=== PATIENT | male | born 1985 | race Caucasian/White ===

== ENCOUNTER 2022-04-21 17:28 | Emergency (ER) | payer OTHER, SELFPAY ==
[2022-04-21] VITALS (28 sets, daily range): BP systolic 114–145; BP diastolic 73–97; PULSE 62–81; RESP 8; TEMP 36.1; O2SAT 97–100; BMI 26.6
--- NOTE | 2022-04-21 17:50 | CRLHL7_ITS ---
For Patients: As a result of the Century Cures Act, medical imaging exams and procedure reports are released immediately into your electronic medical record. You may view this report before your referring provider. If you have questions, please contact your health care provider. INDICATION: Fall. Head injury. Loss of consciousness. TECHNIQUE: CT of the head without contrast. Coronal and sagittal reformats are included. COMPARISON: None. FINDINGS: Motion artifact degrades fine detail. No acute intracranial hemorrhage. No mass effect or midline shift. No hydrocephalus or extra-axial collections. Pineal gland cyst. Asymmetry of the ventricular system likely anatomic variance. No acute osseous abnormalities. Left maxillary sinus air-fluid level. Paranasal sinuses otherwise clear. Mastoid air cells are clear. Normal soft tissues. IMPRESSION: 1. Motion artifact degrades fine detail. Accounting for this, no acute intracranial abnormalities identified. Please note that all CT scans at this facility use dose modulation, iterative reconstruction, and/or weight-based dosing when appropriate to reduce radiation dose to as low as reasonably achievable. Dictated by Asa Blackburn MD @ 04/21/2022 6:28:37 PM (Electronically Signed)
--- NOTE | 2022-04-21 17:55 | ED.NURSE ---
LET and tegaderm applied to R eye lac.
--- NOTE | 2022-04-21 17:56 | CRLHL7_ITS ---
For Patients: As a result of the Cures Act, medical imaging exams and procedure reports are released immediately into your electronic medical record. You may view this report before your referring provider. If you have questions, please contact your health care provider. INDICATION: Injury and pain. TECHNIQUE: Right thumb 3 views. COMPARISON: None. FINDINGS: Small avulsion fracture of the distal phalangeal base. Joint spaces are maintained. Mild soft tissue swelling. IMPRESSION: Distal phalangeal base avulsion fracture. Dictated by Russel Combs MD @ 04/21/2022 6:26:53 PM (Electronically Signed)
--- NOTE | 2022-04-21 18:03 | ED_ITS ---
HPI - Fall General Date Seen: 04/21/22 Chief Complaint: Fall/Minor Trauma Stated Complaint: LAC EYE,GUMS-PASSED OUT-POSSIBLE BROKEN THUMB Time Seen by Provider: 04/21/22 17:29 Source: patient and family Mode of arrival: ambulatory Limitations: no limitations History of Present Illness HPI Narrative: Patient is delightful 28-year-old gentleman accompanied by his who was at a local brewery in [place], when he walked to the bathroom felt faint and passed out striking right side of his head, on porcelain toilet. He tried to get up he thinks, and then repeat passed out. Is found by family member there and the bathroom, they sat him on the toilet knee was very groggy, sweaty. Denies any real recollection of what went on, there is no history of any seizure activity, and he has had no previous history of any syncopal episodes. It a total of 2 beers today, but did not drink a lot of fluids nor eat any real food. No pre- existing history of cardiac issues, denies any chest pain shortness of breath associated with this. Denies any use of any other drugs. Did suffer a laceration to the right corner of his eye, slight headache associated with this but denies any neck pain, there is no numbness tingling weakness in his hands or his feet, he is not nauseous, does have some pain to his right thumb. Feels much better now and feels like he is back to basically normal except with the above complaints. Not taking any medications for his discomfort. MD complaint: fall Onset (ago): minute(s) (45) Fall from: standing Fall witnessed: no Place fall occurred: other Loss of consciousness: Yes Prolonged down time: no and unclear Symptoms prior to fall: lightheadedness Context: alcohol use Location of injury: head, face and other Severity: moderate Quality: throbbing Associated symptoms (after fall): headache Related Data Home Medications Medication Instructions Recorded Confirmed No Known Home Medications 04/21/22 04/21/22 Allergies Allergy/AdvReac Type Severity Reaction Status Date / Time No Known Drug Allergies Allergy Verified 03/03/22 09:24 Review of Systems Status of ROS: Reports: 10 or more systems reviewed and unremarkable except as noted in History and below [facility] Social History Smoking Status: Current some day smoker What tobacco products do you use: cigarettes Do you use any of these nicotine containing products: None How often do you have a drink containing alcohol: monthly or less How many standard drinks containing alcohol do you have on a typical day: 1 or 2 How often do you have six or more drinks on one occasion: Never AUDIT-C Alcohol total score: 1 Non-prescribed substance use: denies use Exam Narrative: Exam Narrative: Patient is in no apparent distress speaking to me normally on the cart, laceration of approximately 1 and half to 2 in noted lateral to his right eye, and horizontal. Some gaping. Alert and oriented x3, speaking normally now eloquently, neck has good range of motion of flexion extension lateral flexion cervical rotation there is no C-spine tenderness, little bit of tenderness over the right zygomatic arch, cranial nerves 3-12 are normal, extraocular muscles are normal, no scleral icterus redness is noted his TMs are normal, moves mouth opening normal, laceration to the right upper gum, over his 1st incisor, note loosening of his teeth are noted, there is no other or oropharyngeal laceration noted. Submandibular area is quiet, with no swelling, JVP is flat, no lymphadenopathy anterior posterior chains, clavicles are nontender, chest is good air entry bilateral with no wheezing crackles noted, easy respirations, h eart sounds no clicks murmurs or gallops, he moves all extremities independently and well, both upper Annabella is a little tender over the IP joint of his right thumb. His wrists are nontender bilaterally good director of digital technology strength good proximal muscle and distal muscle strength of both upper and lower bilateral extremities. Abdomen is soft there is no guarding no past splenomegaly bowel sounds are normal, C-spine thoracic spine and lumbar spine are nontender to palpation, fine motor movements fingers nose testing are normal. Const: Vital Signs, click to edit/add: Vital Signs - 24 hr 04/21/22 17:35 04/21/22 17:40 04/21/22 17:43 Temperature 97.0 F L Pulse Rate 65 Pulse Rate [Left P ulse Oximeter] 62 64 Respiratory Rate 8 L Blood Pressure 134/87 Blood Pressure [Ri ght Upper Arm] 137/97 H 134/87 Pulse Oximetry 100 100 100 Oxygen Delivery Me thod Room Air Room Air 04/21/22 17:44 04/21/22 17:50 04/21/22 18:00 Temperature Pulse Rate 68 66 66 Pulse Rate [Left P ulse Oximeter] Respiratory Rate Blood Pressure Blood Pressure [Ri ght Upper Arm] Pulse Oximetry 99 99 99 Oxygen Delivery Me thod 04/21/22 18:02 04/21/22 18:10 04/21/22 18:12 Temperature Pulse Rate 68 71 69 Pulse Rate [Left P ulse Oximeter] Respiratory Rate Blood Pressure 143/86 H 135/88 Blood Pressure [Ri ght Upper Arm] Pulse Oximetry 99 99 99 Oxygen Delivery Me thod 04/21/22 18:24 04/21/22 18:25 04/21/22 18:26 Temperature Pulse Rate 71 69 72 Pulse Rate [Left P ulse Oximeter] Respiratory Rate Blood Pressure 114/85 Blood Pressure [Ri ght Upper Arm] Pulse Oximetry 100 99 99 Oxygen Delivery Me thod 04/21/22 18:30 04/21/22 18:32 04/21/22 18:33 Temperature Pulse Rate 70 71 69 Pulse Rate [Left P ulse Oximeter] Respiratory Rate Blood Pressure 120/77 Blood Pressure [Ri ght Upper Arm] Pulse Oximetry 99 98 98 Oxygen Delivery Me thod 04/21/22 18:40 04/21/22 18:41 04/21/22 18:50 Temperature Pulse Rate 69 71 69 Pulse Rate [Left P ulse Oximeter] Respiratory Rate Blood Pressure 119/77 Blood Pressure [Ri ght Upper Arm] Pulse Oximetry 98 98 99 Oxygen Delivery Me thod 04/21/22 18:52 04/21/22 19:00 04/21/22 19:02 Temperature Pulse Rate 77 76 77 Pulse Rate [Left P ulse Oximeter] Respiratory Rate Blood Pressure 142/87 H 120/78 Blood Pressure [Ri ght Upper Arm] Pulse Oximetry 99 100 99 Oxygen Delivery Me thod 04/21/22 19:12 04/21/22 19:13 04/21/22 19:20 Temperature Pulse Rate 81 76 78 Pulse Rate [Left P ulse Oximeter] Respiratory Rate Blood Pressure 145/77 H Blood Pressure [Ri ght Upper Arm] Pulse Oximetry 98 98 98 Oxygen Delivery Me thod 04/21/22 19:22 04/21/22 19:23 04/21/22 19:30 Temperature Pulse Rate 76 81 75 Pulse Rate [Left P ulse Oximeter] Respiratory Rate Blood Pressure 130/73 Blood Pressure [Ri ght Upper Arm] Pulse Oximetry 97 97 98 Oxygen Delivery Me thod 04/21/22 19:31 Temperature Pulse Rate 74 Pulse Rate [Left P ulse Oximeter] Respiratory Rate Blood Pressure 129/74 Blood Pressure [Ri ght Upper Arm] Pulse Oximetry 98 Oxygen Delivery Me thod Documenting provider has reviewed patient's vital signs: yes Common normals: no apparent distress and average body habitus Course Vital Signs Vital signs: Initial Vital Signs Temperature 97.0 F L 04/21/22 17:35 Temperature Source Temporal Artery Scan 04/21/22 17:35 Pulse Rate 62 04/21/22 17:35 Blood Pressure 137/97 H 04/21/22 17:35 Blood Pressure Mean 110 04/21/22 17:35 Blood Pressure Position Supine 04/21/22 17:35 Pulse Oximetry 100 04/21/22 17:35 Oxygen Delivery Method 04/21/22 17:35 Vital Signs Temperature 97.0 F L 04/21/22 17:35 Pulse Rate 62 04/21/22 17:35 Blood Pressure 137/97 H 04/21/22 17:35 Pulse Oximetry 100 04/21/22 17:35 Oxygen Delivery Method 04/21/22 17:35 Temperature 97.0 F L 04/21/22 17:35 Pulse Rate 74 04/21/22 19:31 Respiratory Rate 8 L 04/21/22 17:40 Blood Pressure 129/74 04/21/22 19:31 Pulse Oximetry 98 04/21/22 19:31 Oxygen Delivery Method 04/21/22 17:40 MDM - Fall MDM Narrative Medical decision making narrative: Life-threatening differential diagnosis considered include: Cardiac arrhythmia, acute blood loss, and intracranial bleed. Other differential diagnosis include but are not limited to vasovagal syncope, orthostatic syncope, seizure, as well as other etiologies Life-threatening differential diagnosis is considered include: Subarachnoid hemorrhage, subdural hemorrhage, epidural hemorrhage. Other differential diagnosis considered include concussion, closed head injury, or neck fracture. Lab Data Labs: Lab Results 04/21/22 04/21/22 04/21/22 Range/Units 17:54 18:00 18:00 WBC 8.82 (4.50-11.00) K/uL RBC 5.53 (4.30-5.90) m/uL Hgb 16.2 (13.5-17.5) gm/dL Hct 48.7 (37.0-53.0) % MCV 88 (80-100) fL MCH 29 (26-34) pg MCHC 33 (32-36) gm/dL RDW Coeff of Martin 12.9 (11.5-15.5) % Plt Count 222 (140-440) K/uL Neut % (Auto) 55.3 (42.0-72.0) % Lymph % (Auto) 33.4 (20-44) % Foard % (Auto) 7.3 (0.0-11.0) % Eos % (Auto) 3.1 (0.0-7.0) % Baso % (Auto) 0.7 (0.0-3.0) % Neut # (Auto) 4.88 (1.7-7.0) K/uL Lymph # (Auto) 2.95 H (0.90-2.90) K/uL Foard # (Auto) 0.60 (0.00-0.90) K/UL Eos # (Auto) 0.27 (0.00-0.50) K/uL Baso # (Auto) 0.06 (0.00-0.30) K/uL Abs Immat Gran (auto) 0.02 (0.00-0.30) K/uL Sodium 139 (135-149) mmol/L Potassium 3.5 L (3.6-5.1) mmol/L Chloride 101 (96-114) mmol/L Carbon Dioxide 26 (20-32) mmol/L BUN 17 (5-24) mg/dL Creatinine 1.4 (0.5-1.5) mg/dL Estimated Creat Clear 71.54 Estimated GFR 66 ml/min Glucose 105 (60-115) mg/dL Calcium 9.2 (8.4-10.6) mg/dL POC Troponin I 0.00 L (0.01-0.04) ng/ml ECG Data Attestation: I personally reviewed and interpreted this ECG as follows: ECG interpretation date: 04/21/22 ECG interpretation time: 17:36 Prior ECG tracings: not available for review Interpretation: EKG shows normal sinus rhythm with a ventricular rate of 61, no acute ST wave changes noted. NC interval and QT your normal Discharge Plan Discharge Clinical Impression: Laceration Syncope Qualifiers: Syncope type: unspecified Qualified Code(s): R55 - Syncope and collapse Avulsion fracture of thumb Qualifiers: Encounter type: initial encounter Laterality: right Head injury Qualifiers: Encounter type: initial encounter Qualified Code(s): S09.90XA - Unspecified inj ury of head, initial encounter Patient Disposition: Home w/ Parent or Adult Condition: Improved Instructions: Care For Your Stitches (DC), Syncope (ED), Head Injury (ED), Thumb Fracture (ED), Facial Laceration (ED) Additional Instructions: Home, rest, follow-up in 5 days for removal of sutures with primary care, bacitracin daily to the area. Please keep the splint on her thumb, and follow- up with orthopedics for this or Primary Care. Would suggest Tylenol ibuprofen, for the discomfort keep hydrated for the next 24 hours avoidance of alcohol,. Signs and symptoms to watch for including the handout that we have given you but also increasing headache, nausea vomiting, unequal pupils, numbness and tingling, please refer come back to the hospital. For your laceration, if redness swelling, this signs of infection I would come back and be seen. This can occur, and should be watch for with diligent Prescriptions: No Action No Known Home Medications Follow Up/Referrals: Blayne Sanchez MD [Primary Care Provider] - Stand Alone Forms: [facility] Info Instructions Procedures Laceration Laceration 1: Pre procedure diagnosis: laceration repair of the right lateral face, just lateral to the eye Post procedure diagnosis: same Site marking: not applicable Verification/time out: correct patient, correct site, correct procedure and time out performed Name of person performing procedure: Mannie Loaiza Site: face Side (If applicable): right Size (cm): 3 Description: linear Depth: simple, single layer Local Anesthetic: lidocaine 1% and with epi Amount of anesthesia used (mL): 2 Pre-repair: wound explored, irrigated extensively and deep structures intact Skin layer closed with: nylon Size (cm): 5-0 Number of sutures: 4 Technique: simple, interrupted Wound cleansing: sterile water Estimated blood loss (if any): none Conclusion: patient tolerated procedure Orthopedic Splinting/Casting Injury #1: Side: right Upper Extremity Injury Location: finger Upper extremity immobilizer: aluminum form splint Applied by clinician: nursing Conclusion: patient tolerated procedure
[2022-04-21 18:13] LABS: Basophils Absolute Auto 0.06 K/uL (0.00-0.30); Basophils Percent Auto 0.7 % (0.0-3.0); Eosinophils Absolute Auto 0.27 K/uL (0.00-0.50); Eosinophils Percent Auto 3.1 % (0.0-7.0); Hematocrit 48.7 % (37.0-53.0); Hemoglobin* 16.2 gm/dL (13.5-17.5); Immature Granulocytes Abs Auto 0.02 K/uL (0.00-0.30); Lymphocytes Absolute Auto 2.95 K/uL (0.90-2.90); Lymphocytes Percent Auto 33.4 % (20-44); Mean Corpuscular HGB Conc 33 gm/dL (32-36); Mean Corpuscular Hemoglobin 29 pg (26-34); Mean Corpuscular Volume 88 fL (80-100); Monocytes Percent Auto 7.3 % (0.0-11.0); Neutrophils Absolute Auto 4.88 K/uL (1.7-7.0); Neutrophils Percent Auto 55.3 % (42.0-72.0); Platelet Count* 222 K/uL (140-440); RDW Coefficient of Variation % 12.9 % (11.5-15.5); Red Blood Count 5.53 m/uL (4.30-5.90); White Blood Count* 8.82 K/uL (4.50-11.00)
[2022-04-21 18:20] LABS: Slide Review Reflex No
[2022-04-21 18:26] LABS: Chloride* 101 mmol/L (96-114); Potassium* 3.5 mmol/L (3.6-5.1); Sodium* 139 mmol/L (135-149)
[2022-04-21] MEDS: 0.9 % SODIUM CHLORIDE 1000 ml 1,000 ML IV (18:28)
[2022-04-21 18:29] LABS: Blood Urea Nitrogen* 17 mg/dL (5-24); Carbon Dioxide* 26 mmol/L (20-32); Creatinine* 1.4 mg/dL (0.5-1.5); Est. Creatinine Clearance* 71.54; Estimated Glomerular Filt Rate 66 ml/min
[2022-04-21 18:30] LABS: Calcium* 9.2 mg/dL (8.4-10.6); Glucose* 105 mg/dL (60-115)
--- NOTE | 2022-04-21 18:55 | ED.NURSE ---
R eye lac irrigated by Chase ROBERSON.
--- NOTE | 2022-04-21 19:20 | ED.NURSE ---
MD in RM to suture R eye lac.
--- NOTE | 2022-04-21 19:35 | ED.NURSE ---
Thumb splint applied to R thumb. Kenny wrap applied over splint.
== END 2022-04-21 20:03 | disposition home or self-care (01) ==
PROVIDERS: Emergency Provider Family Medicine; PCP Family Medicine
DX: R55 Syncope and collapse (principal); S01.411A Laceration without foreign body of right cheek and temporomandibular area, initial encounter; S01.512A Laceration without foreign body of oral cavity, initial encounter; S62.501A Fracture of unspecified phalanx of right thumb, initial encounter for closed fracture; W18.39XA Other fall on same level, initial encounter; Y92.838 Other recreation area as the place of occurrence of the external cause
CPT/HCPCS: 12013; 29130; 36415; 70450; 73140; 80048; 84484; 85025; 96360; 99284; 99285; 99291; J7030

== ENCOUNTER 2025-03-16 08:15 | Outpatient (RCR) | payer OTHER, SELFPAY | END 2025-07-14 14:26 | disposition home or self-care (01) | PROVIDERS: PCP Family Medicine; Visit Provider Surgery | DX: M54.42 Lumbago with sciatica, left side (principal); M54.41 Lumbago with sciatica, right side; G89.29 Other chronic pain; Z51.89 Encounter for other specified aftercare | CPT/HCPCS: 97110; 97112; 97140; 97162 ==